=== PATIENT | female | born 1975 | race Caucasian/White ===

== ENCOUNTER 2018-03-01 06:59 | Observation (INO) ==
[2018-03-01] MEDS ORDERED: Acetaminophen 325 MG Tablet PO ONE (07:46)
[2018-03-01] MEDS ORDERED: Sod Chloride 0.9% Inj 1,000 ML IV.SIG ONE ×2 (07:46→10:18)
--- NOTE | 2018-03-01 07:55 | ED ---
HPI General Chief Complaint: Overdose Stated Complaint: Poss od/evac Time Seen by Provider: 03/01/18 07:15 Source: RN notes reviewed Mode of arrival: EMS Limitations: other History of Present Illness HPI Narrative: 42yo F with PMH of gastroparesis, kidney transplant x2 (last in [facility] in [place] 2012) was brought in by [facility] for overdose. Pt was found unresponsive by and not breathing and when [facility] arrived, her O2 sat was 50% and was bagged and given 0.8mg of narcan through IO. Pt admits to putting 2mg of dilaudid in her G tube. Pt said she has pain in her abdominal when I press and when I dont press. She is sleepy but easily arousable and follows commands. Denies any suicidal ideations. Said she gave herself dilaudid for pain. Related Data Home Medications Medication Instructions Recorded Confirmed calcitriol 0.25 mcg PO DAILY 03/01/18 03/01/18 furosemide [Lasix] 80 mg PO DAILY 03/01/18 03/01/18 hydromorphone [Dilaudid] 4 mg PO Q4H PRN 03/01/18 03/01/18 lorazepam [Ativan] 2 mg PO Q6HR PRN 03/01/18 03/01/18 mycophenolate sodium [Myfortic] 720 mg PO BID 03/01/18 03/01/18 pregabalin [Lyrica] 100 mg PO BID 03/01/18 03/01/18 sertraline [Zoloft] 200 mg PO DAILY 03/01/18 03/01/18 sodium bicarbonate 1,300 mg PO TID 03/01/18 03/01/18 tacrolimus [Prograf] 3 mg PO BID 03/01/18 03/01/18 zolpidem 10 mg PO HS 03/01/18 03/01/18 Allergies Allergy/AdvReac Type Severity Reaction Status Date / Time ceftriaxone [From Rocephin] Allergy Intermediate RASH, Verified 03/01/18 07:14 ITCHING metoclopramide Allergy Intermediate HIVES, Verified 03/01/18 07:14 AGITATION Review of Systems ROS Unobtainable unobtainable due to mental status PMFSH Social History Social History Substance History: No History of Abuse Second Hand Smoke Exposure: No Smoking Status: Never smoker How Often Do You Have a Drink Containing Alcohol: Never Recent Travel in [facility] within the Last 8 Weeks: No Recent Out of Country Travel within the Last 8 Weeks: No Immunization History Tetanus Immunization: Unsure Hx Influenza Vaccine This Season: No Exam Narrative Exam Narrative: GENERAL: 42yo F not in distress, sleepy, but arousable. SKIN: Focused skin assessment warm/dry. HEAD: Atraumatic. Normocephalic. EYES: Pupils equal and round at 2mm bilaterally. ENT: No nasal bleeding or discharge. Mucous membranes pink and moist. NECK: Trachea midline. No JVD. CARDIOVASCULAR: Tachycardic in the 110s. No murmur appreciated. RESPIRATORY: No accessory muscle use. Clear to auscultation. Breath sounds equal bilaterally. GASTROINTESTINAL: Abdomen soft, mild diffuse ttp. G tube in place. MUSCULOSKELETAL: No obvious deformities. No clubbing. No cyanosis. No edema. NEUROLOGICAL: Sleepy but arousable. Moves all extremities. Slurred speech. Course Initial Documented Vital Signs Temperature 101.0 F H 03/01/18 07:15 Pulse Rate 111 H 03/01/18 07:15 Respiratory Rate 20 03/01/18 07:15 Blood Pressure 101/56 L 03/01/18 07:15 Pulse Oximetry 96 03/01/18 07:15 Last Documented Vital Signs Temperature 99.6 F 03/02/18 16:00 Pulse Rate 96 H 03/02/18 16:00 Respiratory Rate 16 03/02/18 16:00 Blood Pressure 129/80 03/02/18 16:00 Pulse Oximetry 98 03/02/18 16:00 Medical Decision Making [facility] Narrative Medical decision making narrative: 42yo F was brought in as a overdose. Pt found to be febrile at 101F and then given acetaminophen and repeat temp is 99.3F. Labs reviewed, no leukocytosis at 10.4. H/H 9.4/29.0. Creatinine is borderline elevated at 1.33. BUN is elevated at 20. Acetaminophen negative. Alcohol negative. Pt said she was using dilaudid for pain. CT brain negative. CT a/p showed constipation. No acute inflammatory process. Atrophy kidneys with transplant kidney left lower quadrant. Apparent pancreatic transplant. CXR showed no acute cardiopulmonary disease. I discussed with Dr. Moreno from [facility] transplant team in [place] and she recommends just sending blood cultures and do not recommend empiric antibiotics for fever. Pt has been observed in the ED for many hours but is still not back to baseline mental status as per . Pt is sleeping but saturation goes down to 84% on RA without so oxygen placed back on. said he has seen her like this before but denies any history of sleep apnea. Will obtain ABG on room air. Discussed with Dr. Sahni and accepted to his service. ABG showed pH 7.36, pO2 is low at 43. Since pt is a kidney transplant pt, will do VQ scan to r/o PE instead of CTA. Discussed this with Dr. Sahni. Lab Data Result diagrams: 03/01/18 08:55 03/02/18 03:35 Lab Results 03/01/18 03/01/18 03/01/18 Range/Units 08:43 08:55 08:55 WBC (4.0-11.0) th/mm3 RBC (4.00-5.30) mil/mm3 Hgb (11.6-15.3) gm/dL Hct (35.0-46.0) % MCV (80.0-100.0) fL MCH (27.0-34.0) pg MCHC (32.0-36.0) % RDW (11.6-17.2) % Plt Count (150-450) th/mm3 MPV (7.0-11.0) fL Prelim Diff (Auto) Neut % (Auto) (16.0-70.0) % Lymph % (Auto) (9.0-44.0) % Graves % (Auto) (0.0-8.0) % Eos % (Auto) (0.0-4.0) % Baso % (Auto) (0.0-2.0) % Neut # (Auto) (1.8-7.7) th/mm3 Lymph # (Auto) (1.0-4.8) th/mm3 Graves # (Auto) (0.0-0.9) th/mm3 Eos # (Auto) (0.0-0.4) th/mm3 Baso # (Auto) (0.0-0.2) th/mm3 WBC Differential Diff Scan Differential Comment Ovalocytes (None) PT 10.9 (9.8-11.6) sec INR 1.1 Ratio APTT (24.3-30.1) sec Puncture Site Patient Temperature O2 Saturation (90-100) % ABG pH (7.380-7.420) ABG pCO2 (38-42) mmHg ABG pO2 (61-120) mmHg ABG HCO3 (22-26) mmol/L ABG O2 Content (12.0-20.0) Vol % ABG Base Excess (-2-2) mmol/L ABG Methemoglobin (0-2) % Costa Test Hemoglobin (12.0-16.0) G/DL Carboxyhemoglobin (0-4) % O2 Delivery Device Inspired O2 % Critical Value Sodium 136 (136-145) meq/L Potassium 4.9 (3.5-5.1) meq/L Chloride 101 (98-107) meq/L Carbon Dioxide 27.0 (21.0-32.0) meq/L Anion Gap 8 (5-15) meq/L BUN 20 H (7-18) mg/dL Creatinine 1.33 H (0.50-1.00) mg/dL Estimated GFR 43 L (>89) mL/min POC Glucose 103 (68-110) mg/dl Random Glucose 93 (74-106) mg/dL Lactic Acid (0.4-2.0) mmol/L Calcium 8.6 (8.5-10.1) mg/dL Total Bilirubin 0.2 (0.2-1.0) mg/dL AST 26 (15-37) U/L ALT 22 (10-53) U/L Alkaline Phosphatase 93 (45-117) U/L Total Protein 7.0 (6.4-8.2) g/dL Albumin 3.3 L (3.4-5.0) g/dL Lipase 109 (73-393) U/L TSH (0.358-3.740) uIU/mL Urine Color (Yellw/Straw) Urine Clarity (Clear) Urine pH (5.0-8.5) Ur Specific [place] (1.002-1.035) Urine Protein (Neg-Trace) mg/dL Urine Glucose (UA) (Negative) mg/dL Urine Ketones (Negative) mg/dL Urine Occult Blood (Negative) Urine Nitrate (Negative) Urine Bilirubin (Negative) Urine Urobilinogen (Less than 2) mg/dL Ur Leukocyte Esterase (Negative) Urine RBC (0-3) /hpf Urine WBC (0-5) /hpf Hyaline Casts (0-3) /lpf Micro UA Comment Urine Culture Comments Salicylates (2.8-20.0) mg/dL Acetaminophen Less than 2.0 L (10.0-30.0) mcg/mL Serum Alcohol Less than 3 (0-5) mg/dL 03/01/18 03/01/18 03/01/18 Range/Units 08:55 08:55 08:55 WBC 10.4 (4.0-11.0) th/mm3 RBC 3.00 L (4.00-5.30) mil/mm3 Hgb 9.4 L (11.6-15.3) gm/dL Hct 29.0 L (35.0-46.0) % MCV 96.8 (80.0-100.0) fL MCH 31.4 (27.0-34.0) pg MCHC 32.5 (32.0-36.0) % RDW 14.7 (11.6-17.2) % Plt Count 292 (150-450) th/mm3 MPV 9.7 (7.0-11.0) fL Prelim Diff (Auto) Slide review pending Neut % (Auto) 90.1 H (16.0-70.0) % Lymph % (Auto) 2.9 L (9.0-44.0) % Graves % (Auto) 6.3 (0.0-8.0) % Eos % (Auto) 0.1 (0.0-4.0) % Baso % (Auto) 0.6 (0.0-2.0) % Neut # (Auto) 9.4 H (1.8-7.7) th/mm3 Lymph # (Auto) 0.3 L (1.0-4.8) th/mm3 Graves # (Auto) 0.7 (0.0-0.9) th/mm3 Eos # (Auto) 0.0 (0.0-0.4) th/mm3 Baso # (Auto) 0.1 (0.0-0.2) th/mm3 WBC Differential . Diff Scan Auto diff confirmed Differential Comment . Ovalocytes 1+ H (None) PT (9.8-11.6) sec INR Ratio APTT (24.3-30.1) sec Puncture Site Patient Temperature O2 Saturation (90-100) % ABG pH (7.380-7.420) ABG pCO2 (38-42) mmHg ABG pO2 (61-120) mmHg ABG HCO3 (22-26) mmol/L ABG O2 Content (12.0-20.0) Vol % ABG Base Excess (-2-2) mmol/L ABG Methemoglobin (0-2) % Costa Test Hemoglobin (12.0-16.0) G/DL Carboxyhemoglobin (0-4) % O2 Delivery Device Inspired O2 % Critical Value Sodium (136-145) meq/L Potassium (3.5-5.1) meq/L Chloride (98-107) meq/L Carbon Dioxide (21.0-32.0) meq/L Anion Gap (5-15) meq/L BUN (7-18) mg/dL Creatinine (0.50-1.00) mg/dL Estimated GFR (>89) mL/min POC Glucose (68-110) mg/dl Random Glucose (74-106) mg/dL Lactic Acid 1.6 (0.4-2.0) mmol/L Calcium (8.5-10.1) mg/dL Total Bilirubin (0.2-1.0) mg/dL AST (15-37) U/L ALT (10-53) U/L Alkaline Phosphatase (45-117) U/L Total Protein (6.4-8.2) g/dL Albumin (3.4-5.0) g/dL Lipase (73-393) U/L TSH (0.358-3.740) uIU/mL Urine Color (Yellw/Straw) Urine Clarity (Clear) Urine pH (5.0-8.5) Ur Specific [place] (1.002-1.035) Urine Protein (Neg-Trace) mg/dL Urine Glucose (UA) (Negative) mg/dL Urine Ketones (Negative) mg/dL Urine Occult Blood (Negative) Urine Nitrate (Negative) Urine Bilirubin (Negative) Urine Urobilinogen (Less than 2) mg/dL Ur Leukocyte Esterase (Negative) Urine RBC (0-3) /hpf Urine WBC (0-5) /hpf Hyaline Casts (0-3) /lpf Micro UA Comment Urine Culture Comments Salicylates Less than 1.7 L (2.8-20.0) mg/dL Acetaminophen (10.0-30.0) mcg/mL Serum Alcohol (0-5) mg/dL 03/01/18 03/01/18 03/01/18 Range/Units 08:55 08:55 10:37 WBC (4.0-11.0) th/mm3 RBC (4.00-5.30) mil/mm3 Hgb (11.6-15.3) gm/dL Hct (35.0-46.0) % MCV (80.0-100.0) fL MCH (27.0-34.0) pg MCHC (32.0-36.0) % RDW (11.6-17.2) % Plt Count (150-450) th/mm3 MPV (7.0-11.0) fL Prelim Diff (Auto) Neut % (Auto) (16.0-70.0) % Lymph % (Auto) (9.0-44.0) % Graves % (Auto) (0.0-8.0) % Eos % (Auto) (0.0-4.0) % Baso % (Auto) (0.0-2.0) % Neut # (Auto) (1.8-7.7) th/mm3 Lymph # (Auto) (1.0-4.8) th/mm3 Graves # (Auto) (0.0-0.9) th/mm3 Eos # (Auto) (0.0-0.4) th/mm3 Baso # (Auto) (0.0-0.2) th/mm3 WBC Differential Diff Scan Differential Comment Ovalocytes (None) PT (9.8-11.6) sec INR Ratio APTT 21.9 L (24.3-30.1) sec Puncture Site Patient Temperature O2 Saturation (90-100) % ABG pH (7.380-7.420) ABG pCO2 (38-42) mmHg ABG pO2 (61-120) mmHg ABG HCO3 (22-26) mmol/L ABG O2 Content (12.0-20.0) Vol % ABG Base Excess (-2-2) mmol/L ABG Methemoglobin (0-2) % Costa Test Hemoglobin (12.0-16.0) G/DL Carboxyhemoglobin (0-4) % O2 Delivery Device Inspired O2 % Critical Value Sodium (136-145) meq/L Potassium (3.5-5.1) meq/L Chloride (98-107) meq/L Carbon Dioxide (21.0-32.0) meq/L Anion Gap (5-15) meq/L BUN (7-18) mg/dL Creatinine (0.50-1.00) mg/dL Estimated GFR (>89) mL/min POC Glucose (68-110) mg/dl Random Glucose (74-106) mg/dL Lactic Acid (0.4-2.0) mmol/L Calcium (8.5-10.1) mg/dL Total Bilirubin (0.2-1.0) mg/dL AST (15-37) U/L ALT (10-53) U/L Alkaline Phosphatase (45-117) U/L Total Protein (6.4-8.2) g/dL Albumin (3.4-5.0) g/dL Lipase (73-393) U/L TSH 2.640 (0.358-3.740) uIU/mL Urine Color Yellow (Yellw/Straw) Urine Clarity Clear (Clear) Urine pH 5.0 (5.0-8.5) Ur Specific [place] 1.015 (1.002-1.035) Urine Protein Negative (Neg-Trace) mg/dL Urine Glucose (UA) Negative (Negative) mg/dL Urine Ketones Negative (Negative) mg/dL Urine Occult Blood Negative (Negative) Urine Nitrate Negative (Negative) Urine Bilirubin Negative (Negative) Urine Urobilinogen Less than 2 (Less than 2) mg/dL Ur Leukocyte Esterase Negative (Negative) Urine RBC Less than 1 (0-3) /hpf Urine WBC Less than 1 (0-5) /hpf Hyaline Casts 4 (0-3) /lpf Micro UA Comment Cath-culture not ind Urine Culture Comments Cath-cult not ind Salicylates (2.8-20.0) mg/dL Acetaminophen (10.0-30.0) mcg/mL Serum Alcohol (0-5) mg/dL 03/01/18 03/02/18 Range/Units 14:23 03:35 WBC (4.0-11.0) th/mm3 RBC (4.00-5.30) mil/mm3 Hgb (11.6-15.3) gm/dL Hct (35.0-46.0) % MCV (80.0-100.0) fL MCH (27.0-34.0) pg MCHC (32.0-36.0) % RDW (11.6-17.2) % Plt Count (150-450) th/mm3 MPV (7.0-11.0) fL Prelim Diff (Auto) Neut % (Auto) (16.0-70.0) % Lymph % (Auto) (9.0-44.0) % Graves % (Auto) (0.0-8.0) % Eos % (Auto) (0.0-4.0) % Baso % (Auto) (0.0-2.0) % Neut # (Auto) (1.8-7.7) th/mm3 Lymph # (Auto) (1.0-4.8) th/mm3 Graves # (Auto) (0.0-0.9) th/mm3 Eos # (Auto) (0.0-0.4) th/mm3 Baso # (Auto) (0.0-0.2) th/mm3 WBC Differential Diff Scan Differential Comment Ovalocytes (None) PT (9.8-11.6) sec INR Ratio APTT (24.3-30.1) sec Puncture Site Right radial Patient Temperature 98.6 O2 Saturation 76 L* (90-100) % ABG pH 7.36 L (7.380-7.420) ABG pCO2 50 H (38-42) mmHg ABG pO2 43 L* (61-120) mmHg ABG HCO3 28 H (22-26) mmol/L ABG O2 Content 10.6 L (12.0-20.0) Vol % ABG Base Excess 2.7 H (-2-2) mmol/L ABG Methemoglobin 0.4 (0-2) % Costa Test Present Hemoglobin 10.0 L (12.0-16.0) G/DL Carboxyhemoglobin 1.0 (0-4) % O2 Delivery Device Room air Inspired O2 21 % Critical Value Yes Sodium 140 (136-145) meq/L Potassium 4.0 D (3.5-5.1) meq/L Chloride 104 (98-107) meq/L Carbon Dioxide 25.5 (21.0-32.0) meq/L Anion Gap 11 (5-15) meq/L BUN 13 (7-18) mg/dL Creatinine 1.10 H (0.50-1.00) mg/dL Estimated GFR 54 L (>89) mL/min POC Glucose (68-110) mg/dl Random Glucose 73 L (74-106) mg/dL Lactic Acid (0.4-2.0) mmol/L Calcium 8.4 L (8.5-10.1) mg/dL Total Bilirubin 0.4 (0.2-1.0) mg/dL AST 23 (15-37) U/L ALT 20 (10-53) U/L Alkaline Phosphatase 86 (45-117) U/L Total Protein 6.6 (6.4-8.2) g/dL Albumin 2.9 L (3.4-5.0) g/dL Lipase (73-393) U/L TSH (0.358-3.740) uIU/mL Urine Color (Yellw/Straw) Urine Clarity (Clear) Urine pH (5.0-8.5) Ur Specific [place] (1.002-1.035) Urine Protein (Neg-Trace) mg/dL Urine Glucose (UA) (Negative) mg/dL Urine Ketones (Negative) mg/dL Urine Occult Blood (Negative) Urine Nitrate (Negative) Urine Bilirubin (Negative) Urine Urobilinogen (Less than 2) mg/dL Ur Leukocyte Esterase (Negative) Urine RBC (0-3) /hpf Urine WBC (0-5) /hpf Hyaline Casts (0-3) /lpf Micro UA Comment Urine Culture Comments Salicylates (2.8-20.0) mg/dL Acetaminophen (10.0-30.0) mcg/mL Serum Alcohol (0-5) mg/dL Imaging Data Radiologist's impression: ITS Impressions Chest X-Ray 03/01/18 07:41 CONCLUSION: No acute cardiopulmonary disease Abdomen/Pelvis CT 03/01/18 07:49 CONCLUSION: 1. Constipation. 2. No acute inflammatory process. 3. Atrophic kidneys with transplant kidney left lower quadrant. 4. Apparent pancreatic transplant. Head CT 03/01/18 07:49 CONCLUSION: 1. No acute intracranial abnormality Pulmonary Perfusion Imaging 03/01/18 15:11 CONCLUSION: 1. Low probability of pulmonary bolus him ECG Data EKG Prior to Arrival: No Attestation: I personally reviewed and interpreted this ECG as follows: Interpretation: Sinus tachycardia at 117bpm. Normal axis. [place] 136ms. No ST segment elevation or depression. Discharge Plan Discharge Disposition Patient Disposition: 30 Still Patient Physicians Team ED Provider: Shabnam Palomares Primary Care Provider: cristina Whitley Christophe C Attending Provider: Michelle Sawyer Discharge Interventions Interventions: ED Discharge Assessment Last Done: 03/01/18 15:17 Vital Signs Last Done: 03/01/18 12:09 Status ED Status: Left Department Discharge Information Discharge Date/Time: 03/01/18 15:19
--- NOTE | 2018-03-01 08:32 | XR ---
EXAM DATE: 03/01/2018 8:30 AM EDT AGE/SEX: 42 years / Female INDICATIONS: Short of breath, being evaluated for overdose CLINICAL DATA: This is the patient's initial encounter. Patient reports that signs and symptoms have been present for 1 day and indicates a pain score of Nonresponsive. MEDICAL/SURGICAL HISTORY: . ventral hernia . kidney and pancreatic transplant COMPARISON: No prior exams available for comparison. FINDINGS: A single AP view of the chest demonstrates the lungs to be symmetrically aerated without evidence of mass, infiltrate or effusion. The cardiomediastinal contours are unremarkable. Osseous structures a re intact. CONCLUSION: No acute cardiopulmonary disease Electronically signed by: João Seymour MD 03/01/2018 8:31 AM EDT
[2018-03-01 09:17] LABS: INR 1.1 Ratio; Prothrombin Time 10.9 sec (9.8-11.6)
[2018-03-01 09:26] LABS: Baso # (Auto) 0.1 th/mm3 (0.0-0.2); Baso % (Auto) 0.6 % (0.0-2.0); Eos % (Auto) 0.1 % (0.0-4.0); Hemoglobin 9.4 gm/dL (11.6-15.3); Lymph # (Auto) 0.3 th/mm3 (1.0-4.8); Lymph % (Auto) 2.9 % (9.0-44.0); Mean Corpuscular HGB Conc 32.5 % (32.0-36.0); Mean Corpuscular Hemoglobin 31.4 pg (27.0-34.0); Mean Corpuscular Volume 96.8 fL (80.0-100.0); Mean Platelet Volume 9.7 fL (7.0-11.0); Mono # (Auto) 0.7 th/mm3 (0.0-0.9); Mono % (Auto) 6.3 % (0.0-8.0); Neut # (Auto) 9.4 th/mm3 (1.8-7.7); Neut % (Auto) 90.1 % (16.0-70.0); Platelet Count 292 th/mm3 (150-450); Red Cell Distribution Width 14.7 % (11.6-17.2); White Blood Count 10.4 th/mm3 (4.0-11.0)
[2018-03-01 09:32] LABS: Albumin 3.3 g/dL (3.4-5.0); Anion Gap 8 meq/L (5-15); Aspartate Aminotransferase 26 U/L (15-37); Blood Urea Nitrogen 20 mg/dL (7-18); Calcium 8.6 mg/dL (8.5-10.1); Chloride 101 meq/L (98-107); Glomerular Filtration Rate 43 mL/min (>89); Glucose,Random 93 mg/dL (74-106); Lipase 109 U/L (73-393); Potassium 4.9 meq/L (3.5-5.1); Sodium 136 meq/L (136-145)
[2018-03-01 09:35] LABS: Alanine Aminotransferase 22 U/L (10-53); Alkaline Phosphatase 93 U/L (45-117)
[2018-03-01 10:03] LABS: Ovalocytes 1+
[2018-03-01 11:21] LABS: Bilirubin,Urine Negative (Negative); Clarity,Urine Clear (Clear); Color,Urine Yellow (Yellw/Straw); Glucose,Urine (UA) Negative (Negative); Hyaline Casts,Urine 4 /lpf (0-3); Leukocyte Esterase,Urine Negative (Negative); Nitrite,Urine Negative (Negative); Specific Gravity,Urine 1.015 (1.002-1.035)
[2018-03-01] MEDS ORDERED: Acetaminophen 325 MG Tablet PO PRN (13:42)
--- NOTE | 2018-03-01 14:09 | P.HP ---
History of Present Illness Primary Care Physician: Nando Faria Mai, m.d., MD Chief Complaint: Altered mental status change, hypoxemia History of Present Illness: 42-year-old female for past medical history of kidney transplant 2, was brought to the ED for evaluation of altered mental status change after patient intentional OD by taking Lorazepam, Dilaudid, Tylenol. Patient was given Narcan by EVAC as patient also had oxygen saturations around 50% for which she was bagged. During my exam although patient is alert and oriented however remains sleepy but easily arousable and follows commands. She denies any suicidal attempt or ideation. Patient continued to remain hypoxemic. Her by the bedside - Diagnosis (1) Hypoxemia (2) Intentional drug overdose (3) Acute respiratory failure with hypoxemia Review of Systems All other systems reviewed negative except as stated in HPI PMFSH - History History Provided By: Patient, Family Member - Medical History Medical History: Medical History (Last Reviewed 03/02/18 @ 12:55 by Carl Tafoya) Diabetes Gastroparesis Jejunostomy tube present Orthostatic hypotension - Surgical History Surgical History: Surgical History (Last Reviewed 03/02/18 @ 12:55 by Carl Tafoya) H/O elbow surgery Kidney transplanted Pancreas transplanted - Tobacco History Second Hand Smoke Exposure: No Smoking Status: Never smoker - Alcohol History How Often Do You Have a Drink Containing Alcohol: Never - Substance Use History Substance History: No History of Abuse - Travel History Recent Travel in the [place] Within the Last 8 Weeks: No Recent Travel Out of the Country Within the Last 8 Weeks: No - Immunization History Tetanus Immunization: Unsure Hx Influenza Vaccine This Season: No Medications and Allergies Active Medications: Active Medications Acetaminophen (Tylenol) 650 mg PO Q4H PRN PRN Reason: Temp > 100.4 Calcitriol (Rocaltrol) 0.25 mcg PO DAILY CARLOS Furosemide (Lasix) 80 mg PO DAILY CARLOS Mycophenolate Sodium (Myfortic Dr) 720 mg PO BID CARLOS Pregabalin (Lyrica) 100 mg PO BID CARLOS Sodium Bicarbonate (Sodium Bicarbonate) 1,300 mg PO TID CARLOS Allergies Allergy/AdvReac Type Severity Reaction Status Date / Time ceftriaxone [From Rocephin] Allergy Intermediate RASH, Verified 03/01/18 07:14 ITCHING metoclopramide Allergy Intermediate HIVES, Verified 03/01/18 07:14 AGITATION Home Medications Medication Instructions Recorded Confirmed Type calcitriol 0.25 mcg PO DAILY 03/01/18 03/01/18 History furosemide [Lasix] 80 mg PO DAILY 03/01/18 03/01/18 History lorazepam [Ativan] 2 mg PO Q6HR PRN 03/01/18 03/01/18 History mycophenolate sodium [Myfortic] 720 mg PO BID 03/01/18 03/01/18 History pregabalin [Lyrica] 100 mg PO BID 03/01/18 03/01/18 History sertraline [Zoloft] 200 mg PO DAILY 03/01/18 03/01/18 History sodium bicarbonate 1,300 mg PO TID 03/01/18 03/01/18 History tacrolimus [Prograf] 3 mg PO BID 03/01/18 03/01/18 History zolpidem 10 mg PO HS 03/01/18 03/01/18 History Exam Vital signs: Vital Signs 03/01/18 07:15 03/01/18 07:39 03/01/18 07:49 Temperature 101.0 F H 100.6 F H Pulse Rate 111 H 117 H 111 H Respiratory Rate 20 21 Blood Pressure 101/56 L 101/56 L Pulse Oximetry 96 94 L 95 03/01/18 07:56 03/01/18 07:59 03/01/18 09:21 Temperature 100.5 F H Pulse Rate 118 H 104 H Respiratory Rate 18 14 Blood Pressure 101/56 L 134/83 Pulse Oximetry 95 95 98 03/01/18 10:16 03/01/18 12:09 Temperature 99.4 F Pulse Rate 100 H 99 H Respiratory Rate 15 14 Blood Pressure 120/76 137/88 Pulse Oximetry 96 96 Intake & Output 02/28/18 03/01/18 03/01/18 18:59 06:59 18:59 Intake Total 1000 / 1000 Balance 1000 / 1000 Weight 56.699 kg Intake: IV 1000 / 1000 NS Inj 1,000 ML @ Wide Open IV. 1000 / 1000 SIG BOLUS ONE Rx#:[id number] Narrative: GENERAL: NAD SKIN: Warm and dry. HEAD: Normocephalic. EYES: No scleral icterus. No injection or drainage. NECK: Supple, trachea midline. No JVD or lymphadenopathy. CARDIOVASCULAR: Regular rate and rhythm without murmurs, gallops, or rubs. RESPIRATORY: Breath sounds equal bilaterally. No accessory muscle use. GASTROINTESTINAL: Abdomen soft, non-tender, nondistended. MUSCULOSKELETAL: No cyanosis, or edema. BACK: Nontender without obvious deformity. No CVA tenderness. Results - Labs CBC & Chem 7: 03/01/18 08:55 03/02/18 03:35 Labs: Laboratory Results - last 24 hr 03/01/18 03/01/18 03/01/18 08:43 08:55 08:55 WBC RBC Hgb Hct MCV MCH MCHC RDW Plt Count MPV Prelim Diff (Auto) Neut % (Auto) Lymph % (Auto) [place] % (Auto) Eos % (Auto) Baso % (Auto) Neut # (Auto) Lymph # (Auto) [place] # (Auto) Eos # (Auto) Baso # (Auto) WBC Differential Diff Scan Differential Comment Ovalocytes PT 10.9 INR 1.1 APTT Sodium 136 Potassium 4.9 Chloride 101 Carbon Dioxide 27.0 Anion Gap 8 BUN 20 H Creatinine 1.33 H Estimated GFR 43 L POC Glucose 103 Random Glucose 93 Lactic Acid Calcium 8.6 Total Bilirubin 0.2 AST 26 ALT 22 Alkaline Phosphatase 93 Total Protein 7.0 Albumin 3.3 L Lipase 109 Urine Color Urine Clarity Urine pH Ur Specific [place] Urine Protein Urine Glucose (UA) Urine Ketones Urine Occult Blood Urine Nitrate Urine Bilirubin Urine Urobilinogen Ur Leukocyte Esterase Urine RBC Urine WBC Hyaline Casts Micro UA Comment Urine Culture Comments Acetaminophen Less than 2.0 L Serum Alcohol Less than 3 03/01/18 03/01/18 03/01/18 08:55 08:55 08:55 WBC 10.4 RBC 3.00 L Hgb 9.4 L Hct 29.0 L MCV 96.8 MCH 31.4 MCHC 32.5 RDW 14.7 Plt Count 292 MPV 9.7 Prelim Diff (Auto) Slide review pending Neut % (Auto) 90.1 H Lymph % (Auto) 2.9 L [place] % (Auto) 6.3 Eos % (Auto) 0.1 Baso % (Auto) 0.6 Neut # (Auto) 9.4 H Lymph # (Auto) 0.3 L [place] # (Auto) 0.7 Eos # (Auto) 0.0 Baso # (Auto) 0.1 WBC Differential . Diff Scan Auto diff confirmed Differential Comment . Ovalocytes 1+ H PT INR APTT 21.9 L Sodium Potassium Chloride Carbon Dioxide Anion Gap BUN Creatinine Estimated GFR POC Glucose Random Glucose Lactic Acid 1.6 Calcium Total Bilirubin AST ALT Alkaline Phosphatase Total Protein Albumin Lipase Urine Color Urine Clarity Urine pH Ur Specific [place] Urine Protein Urine Glucose (UA) Urine Ketones Urine Occult Blood Urine Nitrate Urine Bilirubin Urine Urobilinogen Ur Leukocyte Esterase Urine RBC Urine WBC Hyaline Casts Micro UA Comment Urine Culture Comments Acetaminophen Serum Alcohol 03/01/18 10:37 WBC RBC Hgb Hct MCV MCH MCHC RDW Plt Count MPV Prelim Diff (Auto) Neut % (Auto) Lymph % (Auto) [place] % (Auto) Eos % (Auto) Baso % (Auto) Neut # (Auto) Lymph # (Auto) [place] # (Auto) Eos # (Auto) Baso # (Auto) WBC Differential Diff Scan Differential Comment Ovalocytes PT INR APTT Sodium Potassium Chloride Carbon Dioxide Anion Gap BUN Creatinine Estimated GFR POC Glucose Random Glucose Lactic Acid Calcium Total Bilirubin AST ALT Alkaline Phosphatase Total Protein Albumin Lipase Urine Color Yellow Urine Clarity Clear Urine pH 5.0 Ur Specific [place] 1.015 Urine Protein Negative Urine Glucose (UA) Negative Urine Ketones Negative Urine Occult Blood Negative Urine Nitrate Negative Urine Bilirubin Negative Urine Urobilinogen Less than 2 Ur Leukocyte Esterase Negative Urine RBC Less than 1 Urine WBC Less than 1 Hyaline Casts 4 Micro UA Comment Cath-culture not ind Urine Culture Comments Cath-cult not ind Acetaminophen Serum Alcohol - Imaging Impressions Chest X-Ray 03/01/18 07:41 CONCLUSION: No acute cardiopulmonary disease Abdomen/Pelvis CT 03/01/18 07:49 CONCLUSION: 1. Constipation. 2. No acute inflammatory process. 3. Atrophic kidneys with transplant kidney left lower quadrant. 4. Apparent pancreatic transplant. Head CT 03/01/18 07:49 CONCLUSION: 1. No acute intracranial abnormality Caprini VTE Risk Assessment Caprini VTE Risk Assessment: No/Low Risk (score <= 1) Caprini Risk Assessment Model: Point Value = 1 Point Value = 2 Point Value = 3 Point Value = 5 Age 41-60 Minor surgery BMI > 25 kg/m2 Swollen legs Varicose veins or History of unexplained or recurrent spontaneous Oral contraceptives or hormone replacement Sepsis (< 1 month) Serious lung disease, including pneumonia (< 1 month) Abnormal pulmonary function Acute myocardial infarction Congestive heart failure (< 1 month) History of inflammatory bowel disease Medical patient at bed rest Age 61-74 Arthroscopic surgery Major open surgery (> 45 min) Laparoscopic surgery (> 45 min) Malignancy Confined to bed (> 72 hours) Immobilizing plaster cast Central venous access Age >= 75 History of VTE Family history of VTE Factor V Leiden Prothrombin [id number] Lupus anticoagulant Anticardiolipin antibodies Elevated serum homocysteine Heparin-induced thrombocytopenia Other congenital or acquired thrombophilia Stroke (< 1 month) Elective arthroplasty Hip, pelvis, or leg fracture Acute spinal cord injury (< 1 month) Prophylaxis Regimen: Total Risk Factor Score Risk Level Prophylaxis Regimen 0-1 Low Early ambulation 2 Moderate Order ONE of the following: *Sequential Compression Device (SCD) *Heparin 5000 units SQ BID 3-4 Higher Order ONE of the following medications: *Heparin 5000 units SQ TID *Enoxaparin/Lovenox 40 mg SQ daily (WT < 150 kg, CrCl > 30 mL/min) *Enoxaparin/Lovenox 30 mg SQ daily (WT < 150 kg, CrCl > 10-29 mL/min) *Enoxaparin/Lovenox 30 mg SQ BID (WT < 150 kg, CrCl > 30 mL/min) AND/OR *Sequential Compression Device (SCD) 5 or more Highest Order ONE of the following medications: *Heparin 5000 units SQ TID (Preferred with Epidurals) *Enoxaparin/Lovenox 40 mg SQ daily (WT < 150 kg, CrCl > 30 mL/min) *Enoxaparin/Lovenox 30 mg SQ daily (WT < 150 kg, CrCl > 10-29 mL/min) *Enoxaparin/Lovenox 30 mg SQ BID (WT < 150 kg, CrCl > 30 mL/min) AND *Sequential Compression Device (SCD) Assessment and Plan - Assessment (1) Hypoxemia Code(s): R09.02 - Hypoxemia Status: Acute (2) Intentional drug overdose Code(s): T50.902A - Poisoning by unspecified drugs, medicaments and biological substances, intentional self-harm, initial encounter Status: Acute (3) Acute respiratory failure with hypoxemia Code(s): J96.01 - Acute respiratory failure with hypoxia Status: Acute - Plan 42-year-old female with Toxic encephalopathy Head CT noted and reviewed by me without any intracranial abnormality Chest x-ray unremarkable Acute respiratory failure with Hypoxemia Likely secondary to medication side effect, however patient was advised to follow-up outpatient for sleep study to rule out obstructive sleep apnea DuoNeb as needed and maintain oxygen saturation above 92% Check ABG Check V/Q scan to r/u PE. CTA pulm is contraindicated 2/2 h/o renal-pancreas transplant Perform walk test March 02, 2018 prior to discharge History of kidney and pancreatic transplant Outpatient follow-up DVT prophylaxis: Bilateral SCDs
[2018-03-01 15:04] LABS: ABG Base Excess 2.7 mmol/L (-2-2); ABG PCO2 50 mmHg (38-42); ABG PO2 43 mmHg (61-120)
--- NOTE | 2018-03-01 16:54 | NM ---
EXAM DATE: 03/01/2018 4:42 PM EDT AGE/SEX: 42 years / Female INDICATIONS: Dyspnea and hypoxia. CLINICAL DATA: This is the patient's initial encounter. Patient reports that signs and symptoms have been present for 1 day and indicates a pain score of 0/10. MEDICAL/SURGICAL HISTORY: None. . Kidney transplant. COMPARISON: No prior exams available for comparison. DOSE: 0.62 mCi Tc99m DTPA aerosol 8.5 mCi Tc99m MAA IV TECHNIQUE: Following five minutes of tidal breathing of DTPA aerosol, planar images of the lungs wer e performed in eight projections. The patient was then injected with MAA, and eight-view perfusion s can was performed. FINDINGS: There is a homogeneous pattern of aerosol delivery to the periphery of both lungs. No focal ventilat ory defects are seen. The perfusion lung scan demonstrates a homogenous pattern of uptake in both lungs. No segmental or s ubsegmental defects are seen. CONCLUSION: 1. Low probability of pulmonary bolus him Electronically signed by: Malcolm Suarez MD 03/01/2018 4:52 PM EDT
[2018-03-01] MEDS: Sodium Bicarbonate 650 MG Tablet PO SCH (17:58)
--- NOTE | 2018-03-01 21:47 | ECG ---
Date Performed: 03/01/2018 Time Performed: 07:42:13 PTAGE: 42 years EKG: SINUS TACHYCARDIA ABNORMAL RHYTHM ECG NO PREVIOUS TRACING DOCTOR: Bill Mcdonald Interpretating Date/Time 03/01/2018 21:47:03
[2018-03-01] MEDS: Mycophenolate Sodium 360 MG DR Tablet PO SCH (23:47)
[2018-03-02 05:43] LABS: Albumin 2.9 g/dL (3.4-5.0); Anion Gap 11 meq/L (5-15); Aspartate Aminotransferase 23 U/L (15-37); Blood Urea Nitrogen 13 mg/dL (7-18); Calcium 8.4 mg/dL (8.5-10.1); Carbon Dioxide 25.5 meq/L (21.0-32.0); Chloride 104 meq/L (98-107); Glomerular Filtration Rate 54 mL/min (>89); Glucose,Random 73 mg/dL (74-106); Sodium 140 meq/L (136-145)
[2018-03-02 05:50] LABS: Alanine Aminotransferase 20 U/L (10-53); Alkaline Phosphatase 86 U/L (45-117); Total Protein 6.6 g/dL (6.4-8.2)
[2018-03-02] MEDS: Calcitriol 0.25 MCG Capsule PO SCH (08:49)
[2018-03-02] MEDS: Mycophenolate Sodium 360 MG DR Tablet PO SCH ×2 (08:49→21:59)
[2018-03-02] MEDS: Furosemide 80 MG Tablet PO SCH (08:49)
[2018-03-02] MEDS: Sodium Bicarbonate 650 MG Tablet PO SCH ×3 (08:49→18:57)
[2018-03-02] MEDS: Sertraline 100 MG Tablet PO SCH (08:49)
--- NOTE | 2018-03-02 10:30 | P.PN ---
Subjective Interval history: Patient states she has pain 6 out of 10. States that the Lyrica does not touch it much. Says that the pain is chronic for her and usually takes her Dilaudid but this time took some of her medications too close together. She states that it was not an intentional overdose. She is followed at [facility]. Currently patient denies any nausea or vomiting. She is requesting some Ambien for sleep for tonight. She states that whenever her blood pressure is elevated she takes a dose of hydralazine 25mg at bedtime only if elevated and if her heart rate is elevated she will take metoprolol 50 mg x1 time. She is hopeful she can go home soon. Physical Exam Vital signs: Vital Signs 03/01/18 12:09 03/01/18 14:32 03/01/18 15:17 Temperature 99.4 F Pulse Rate 99 H 96 H Respiratory Rate 14 14 15 Blood Pressure 137/88 145/99 H Pulse Oximetry 96 97 03/01/18 16:00 03/01/18 16:09 03/01/18 17:47 Temperature 98.8 F 99.2 F Pulse Rate 92 H 93 H Respiratory Rate 18 18 14 Blood Pressure 137/91 H 142/88 H Pulse Oximetry 99 99 03/01/18 18:44 03/01/18 20:00 03/01/18 20:10 Temperature 99.0 F Pulse Rate 90 101 H Respiratory Rate 16 Blood Pressure 121/83 Pulse Oximetry 95 99 03/01/18 21:45 03/01/18 23:36 03/02/18 00:30 Temperature 99.7 F H Pulse Rate 105 H 98 H Respiratory Rate 16 18 Blood Pressure 128/81 Pulse Oximetry 95 03/02/18 04:00 03/02/18 07:44 Temperature 99.2 F 99.0 F Pulse Rate 110 H 104 H Respiratory Rate 16 14 Blood Pressure 138/82 172/88 H Pulse Oximetry 98 98 Intake & Output 03/01/18 03/02/18 03/02/18 18:59 06:59 18:59 Intake Total 1000 / 1000 Output Total 100 / 100 Balance 900 / 900 Weight 56.699 kg 56.699 kg Intake: IV 1000 / 1000 NS Inj 1,000 ML @ Wide Open IV. 1000 / 1000 SIG BOLUS ONE Rx#:[id number] Output: Urine 100 / 100 Other: # Voids 1 Weight On Admission 56.699 kg Narrative: GENERAL: laying in bed, alert CARDIOVASCULAR: Regular rate and rhythm without murmurs RESPIRATORY: Breath sounds equal bilaterally. No accessory muscle use. GASTROINTESTINAL: Abdomen soft, non-tender, nondistended. MUSCULOSKELETAL: moves extremities Results - Labs CBC & Chem 7: 03/01/18 08:55 03/02/18 03:35 Laboratory Results - last 24 hr 03/01/18 03/01/18 03/01/18 08:55 08:55 08:55 APTT 21.9 L Puncture Site Patient Temperature O2 Saturation ABG pH ABG pCO2 ABG pO2 ABG HCO3 ABG O2 Content ABG Base Excess ABG Methemoglobin [place] Test Hemoglobin Carboxyhemoglobin O2 Delivery Device Inspired O2 Critical Value Sodium Potassium Chloride Carbon Dioxide Anion Gap BUN Creatinine Estimated GFR Random Glucose Calcium Total Bilirubin AST ALT Alkaline Phosphatase Total Protein Albumin TSH 2.640 Urine Color Urine Clarity Urine pH Ur Specific [place] Urine Protein Urine Glucose (UA) Urine Ketones Urine Occult Blood Urine Nitrate Urine Bilirubin Urine Urobilinogen Ur Leukocyte Esterase Urine RBC Urine WBC Hyaline Casts Micro UA Comment Urine Culture Comments Salicylates Less than 1.7 L 03/01/18 03/01/18 03/02/18 10:37 14:23 03:35 APTT Puncture Site Right radial Patient Temperature 98.6 O2 Saturation 76 L* ABG pH 7.36 L ABG pCO2 50 H ABG pO2 43 L* ABG HCO3 28 H ABG O2 Content 10.6 L ABG Base Excess 2.7 H ABG Methemoglobin 0.4 [place] Test Present Hemoglobin 10.0 L Carboxyhemoglobin 1.0 O2 Delivery Device Room air Inspired O2 21 Critical Value Yes Sodium 140 Potassium 4.0 D Chloride 104 Carbon Dioxide 25.5 Anion Gap 11 BUN 13 Creatinine 1.10 H Estimated GFR 54 L Random Glucose 73 L Calcium 8.4 L Total Bilirubin 0.4 AST 23 ALT 20 Alkaline Phosphatase 86 Total Protein 6.6 Albumin 2.9 L TSH Urine Color Yellow Urine Clarity Clear Urine pH 5.0 Ur Specific [place] 1.015 Urine Protein Negative Urine Glucose (UA) Negative Urine Ketones Negative Urine Occult Blood Negative Urine Nitrate Negative Urine Bilirubin Negative Urine Urobilinogen Less than 2 Ur Leukocyte Esterase Negative Urine RBC Less than 1 Urine WBC Less than 1 Hyaline Casts 4 Micro UA Comment Cath-culture not ind Urine Culture Comments Cath-cult not ind Salicylates - Imaging Impressions Pulmonary Perfusion Imaging 03/01/18 15:11 CONCLUSION: 1. Low probability of pulmonary bolus him Assessment and Plan - Assessment (1) Hypoxemia Code(s): R09.02 - Hypoxemia Status: Acute (2) Intentional drug overdose Code(s): T50.902A - Poisoning by unspecified drugs, medicaments and biological substances, intentional self-harm, initial encounter Status: Acute (3) Acute respiratory failure with hypoxemia Code(s): J96.01 - Acute respiratory failure with hypoxia Status: Acute - Plan 42-year-old female with Toxic encephalopathy Head CT noted without any intracranial abnormality Chest x-ray unremarkable Acute respiratory failure with Hypoxemia Likely secondary to medication side effect, however patient was advised to follow-up outpatient for sleep study to rule out obstructive sleep apnea DuoNeb as needed and maintain oxygen saturation above 92% ABG reviewed. Pt more alert today V/Q scan w low prob for PE. CTA pulm is contraindicated 2/2 h/o renal- pancreas transplant walk test ordered f/u blood cx until final. pending today. History of kidney and pancreatic transplant Outpatient follow-up I have resumed pt's home pain meds. Pt reassures me that it controls her pain but on day of admission she took the pain med and benzo too close to each other. She denied any suicidal intent and understands that it was a mistake of her part to take the meds too close to each other. HTN, give one time dose of hydralazine. anticipate d/c in AM DVT prophylaxis: Bilateral SCDs
[2018-03-02] MEDS ORDERED: hydrALAZINE 25 MG Tablet PO ONE (10:57)
[2018-03-03] MEDS: Sodium Bicarbonate 650 MG Tablet PO SCH (09:25)
[2018-03-03] MEDS: Mycophenolate Sodium 360 MG DR Tablet PO SCH (09:25)
[2018-03-03] MEDS: Sertraline 100 MG Tablet PO SCH (09:26)
[2018-03-03] MEDS: Calcitriol 0.25 MCG Capsule PO SCH (09:26)
[2018-03-03] MEDS: Furosemide 80 MG Tablet PO SCH (09:26)
--- NOTE | 2018-03-03 10:22 | P.PN ---
Subjective Interval history: Patient states she feels a lot better today. Her pain is controlled. Denies any chest pain, shortness of breath, nausea or vomiting. She is eager to go home today. Physical Exam Vital signs: Vital Signs 03/02/18 12:15 03/02/18 16:00 03/02/18 20:00 Temperature 98.4 F 99.6 F Pulse Rate 96 H 96 H 93 H Respiratory Rate 16 16 Blood Pressure 151/86 H 129/80 Pulse Oximetry 96 98 03/02/18 20:57 03/03/18 00:41 03/03/18 03:27 Temperature 98.7 F 98.3 F 98.1 F Pulse Rate 92 H 91 H 92 H Respiratory Rate 18 18 17 Blood Pressure 145/84 H 149/93 H 128/79 Pulse Oximetry 97 95 Intake & Output 03/02/18 03/03/18 03/03/18 18:59 06:59 18:59 Intake Total 1000 / 1000 Balance 1000 / 1000 Weight 56.699 kg Intake: IV 1000 / 1000 Other: Weight On Admission 56.699 kg Narrative: GENERAL: laying in bed, alert CARDIOVASCULAR: Regular rate and rhythm without murmurs RESPIRATORY: Breath sounds equal bilaterally. No accessory muscle use. GASTROINTESTINAL: Abdomen soft, non-tender, nondistended. MUSCULOSKELETAL: moves extremities Results - Labs CBC & Chem 7: 03/01/18 08:55 03/02/18 03:35 Microbiology 03/01/18 08:55 Blood - Peripheral Aerobic Blood Culture - Preliminary No growth in 1 day 03/01/18 08:55 Blood - Peripheral Anaerobic Blood Culture - Preliminary No growth in 1 day 03/01/18 08:50 Blood - Peripheral Aerobic Blood Culture - Preliminary No growth in 1 day 03/01/18 08:50 Blood - Peripheral Anaerobic Blood Culture - Preliminary No growth in 1 day Assessment and Plan - Assessment (1) Hypoxemia Code(s): R09.02 - Hypoxemia Status: Acute (2) Intentional drug overdose Code(s): T50.902A - Poisoning by unspecified drugs, medicaments and biological substances, intentional self-harm, initial encounter Status: Acute (3) Acute respiratory failure with hypoxemia Code(s): J96.01 - Acute respiratory failure with hypoxia Status: Acute - Plan 42-year-old female with Toxic encephalopathy Head CT noted without any intracranial abnormality Chest x-ray unremarkable Acute respiratory failure with Hypoxemia Most likely secondary to medication side effect, as pt admits to taking her dilaudid and lorazepam too close to each other. She denied any suicidal intent and understands that it was a mistake of her part to take the meds too close to each other. Patient was also advised to follow-up outpatient for sleep study to rule out obstructive sleep apnea. I had a long conversation w pt regarding the use of her dilaudid. I recommended to her to please consider decreasing it to 2mg po q4hrs instead of 4mg q4hrs. I requested that she discuss this w her PCP and make adjustments. Pt is on both lorazepam q6hrs and takes 4mg po q4hrs of dilaudid for her chronic pains. Pt voices her understanding DuoNeb as needed and maintain oxygen saturation above 92% ABG reviewed. Pt more alert today V/Q scan w low prob for PE. CTA pulm is contraindicated 2/2 h/o renal- pancreas transplant walk test ordered f/u blood cx until final. pending today. History of kidney and pancreatic transplant Outpatient follow-up D/C planning ok to d/c later today if blood cx neg x 2 days f/u w pcp no new scripts recommended decreasing dose of dilaudid to 2mg instead of 4mg condition stable ad leonarda
== END 2018-03-03 12:00 | disposition home or self-care (01) ==
LOC: NEPFCDU 06:59 → NEDA 06:59 → NEPC 06:59 → NEPFCDU 15:11
PROVIDERS: ADMIT Hospitalist; ATTEND Hospitalist